=== PATIENT | male | born 1985 | race Two or more races ===

== ENCOUNTER 2020-09-25 01:28 | Inpatient (IN) | payer MEDICAID, OTHER ==
[~2020-09-25] VITALS: Ht 175.3 cm; Wt 127.1 kg
[2020-09-25 03:07] LABS: Basophils # (auto) 0.1 10 ^3/uL (0-0.2); Basophils % (auto) 0.9 % (0.0-2.0); Eosinophils # (auto) 1.1 10 ^3/uL (0-0.8); Eosinophils % (auto) 13.2 % (0.0-7.0); Hematocrit 48.3 % (41.0-53.0); Hemoglobin 16.9 g/dL (13.5-17.5); Lymphocytes # (auto) 1.4 10 ^3/uL (0.4-5.4); Lymphocytes % (auto) 17.1 % (10.0-50.0); Mean Corpuscular Hemoglobin 29.4 pg (28.0-32.0); Mean Corpuscular Hgb Conc. 34.9 g/dL (32.0-36.0); Mean Corpuscular Volume 84.2 fL (80.0-100.0); Monocytes # (auto) 0.6 10 ^3/uL (0-1.3); Monocytes % (auto) 7.1 % (0.0-12.0); Neutrophils # (auto) 5.1 10 ^3/uL (1.6-8.6); Neutrophils % (auto) 61.7 % (37.0-80.0); Nucleated Red Blood Cells % 0.1 %; Platelet Count (auto) 180 10^3/uL (140-450); Red Blood Cells 5.74 10^6/uL (4.5-5.90); Red Cell Distribution Width 13.8 % (11.8-14.3); White Blood Cell 8.3 10^3/uL (4.4-10.8)
[2020-09-25 03:26] LABS: Albumin 3.6 g/dL (3.4-5.0); Anion Gap 6 (5-15); Blood Urea Nitrogen 16 mg/dL (7-18); Calcium 8.6 mg/dL (8.5-10.1); Carbon Dioxide 27 mmol/L (21-32); Chloride 108 mmol/L (98-107); GFR African American 78 mL/min; GFR Non-African American 65 mL/min; Glucose 97 mg/dL (74-106); Sodium 141 mmol/L (136-145)
[2020-09-25 03:37] LABS: Alanine Aminotransferase 32 U/L (16-61); Alkaline Phosphatase 77 U/L (45-117); Aspartate Aminotransferase 21 U/L (15-37); Bilirubin, Total 0.5 mg/dL (0.2-1.0); Total Protein 7.4 g/dL (6.4-8.2)
[2020-09-25] MEDS ORDERED: MORPHINE SULFATE 4 MG/ML SYR/VIAL IV PRN (06:15)
[2020-09-25] MEDS ORDERED: ONDANSETRON HCL 4 MG/2 ML VIAL IV PRN (06:15)
[2020-09-25] MEDS ORDERED: ACETAMINOPHEN 325 MG TAB PO PRN (06:15)
[2020-09-25] MEDS ORDERED: DOCUSATE SOD 100 MG CAP PO PRN (06:15)
[2020-09-25] MEDS ORDERED: MORPHINE SULF INJ 2 MG/ML SYRINGE 1ML IV PRN (06:15)
[2020-09-25] MEDS ORDERED: HYDROcodone-ACET 5/325MG TAB PO PRN (06:15)
[2020-09-25] MEDS ORDERED: NITROGLYCERIN 0.4 MG SL TAB SL PRN (06:15)
[2020-09-25 08:04] LABS: Basophils # (auto) 0.1 10 ^3/uL (0-0.2); Basophils % (auto) 1.6 % (0.0-2.0); Eosinophils # (auto) 1.1 10 ^3/uL (0-0.8); Eosinophils % (auto) 14.6 % (0.0-7.0); Hematocrit 45.9 % (41.0-53.0); Hemoglobin 15.8 g/dL (13.5-17.5); Lymphocytes # (auto) 1.6 10 ^3/uL (0.4-5.4); Lymphocytes % (auto) 21.3 % (10.0-50.0); Mean Corpuscular Hemoglobin 29.1 pg (28.0-32.0); Mean Corpuscular Hgb Conc. 34.5 g/dL (32.0-36.0); Mean Corpuscular Volume 84.4 fL (80.0-100.0); Monocytes # (auto) 0.6 10 ^3/uL (0-1.3); Monocytes % (auto) 7.5 % (0.0-12.0); Neutrophils # (auto) 4.1 10 ^3/uL (1.6-8.6); Nucleated Red Blood Cells % 0.1 %; Platelet Count (auto) 166 10^3/uL (140-450); Red Blood Cells 5.43 10^6/uL (4.5-5.90); Red Cell Distribution Width 14.3 % (11.8-14.3); White Blood Cell 7.5 10^3/uL (4.4-10.8)
[2020-09-25 08:07] LABS: Albumin 3.5 g/dL (3.4-5.0); Calcium 8.5 mg/dL (8.5-10.1)
[2020-09-25 08:12] LABS: BUN/Creatinine Ratio 13.8; Bilirubin, Total 0.5 mg/dL (0.2-1.0); Total Protein 6.7 g/dL (6.4-8.2)
[2020-09-25] MEDS: ASPirin 81 mg TAB PO SCH (09:48)
[2020-09-25] MEDS: MULTIPLE VITAMIN TAB PO SCH (09:48)
[2020-09-25] MEDS ORDERED: PANTOPRAZOLE 40 MG/10 ML VIAL INJ IV SCH (10:00)
[2020-09-25] MEDS ORDERED: ZINC SULFATE 220mg CAP or TAB PO SCH (10:00)
[2020-09-25] MEDS ORDERED: ASCORBIC ACID 500 MG TAB PO SCH (10:00)
[2020-09-25 10:50] VITALS: BP 185/99
[2020-09-25 11:14] VITALS: BP 185/99
[2020-09-25] MEDS ORDERED: cloNIDine HCL 0.1 MG TAB PO PRN (11:15)
[2020-09-25] MEDS ORDERED: ALPRAZolam 0.5 MG TAB PO PRN (11:15)
[2020-09-25] MEDS ORDERED: LISINOPRIL 20 MG TAB PO ONE (11:15)
[2020-09-25 13:00] VITALS: BP 164/91
[2020-09-25] MEDS: CYCLOBENZAPRINE HCL 10 MG TAB PO SCH ×2 (13:44→22:00)
[2020-09-25 17:00] VITALS: BP 144/93
[2020-09-25 22:00] VITALS: BP 148/81
[2020-09-25] MEDS ORDERED: ATORVASTATIN 20 MG TAB PO SCH (22:00)
[2020-09-26 05:00] VITALS: BP 130/90
[2020-09-26] MEDS: CYCLOBENZAPRINE HCL 10 MG TAB PO SCH ×2 (06:00→13:30)
[2020-09-26 08:36] VITALS: BP 153/88
[2020-09-26] MEDS ORDERED: ADENOSINE 107 MG in GIVE UN-DILUTED 0 ML IV STA (08:37)
[2020-09-26 09:30] VITALS: BP 137/96
[2020-09-26] MEDS ORDERED: LISINOPRIL 20 MG TAB PO SCH (10:00)
[2020-09-26] MEDS ORDERED: amLODIPine BESYLATE 5 MG TAB PO SCH (10:00)
[2020-09-26] MEDS ORDERED: SERTRALINE HCL 50 MG TAB PO SCH (10:00)
[2020-09-26] MEDS: MULTIPLE VITAMIN TAB PO SCH (10:48)
[2020-09-26] MEDS: ASPirin 81 mg TAB PO SCH (10:50)
[2020-09-26] MEDS ORDERED: LISI-646 PO (12:03)
[2020-09-26] MEDS ORDERED: IBUP600T27 PO (12:03)
[2020-09-26] MEDS ORDERED: FAMO20TA10 PO (12:03)
[2020-09-26] MEDS ORDERED: CYCL-611 PO (12:03)
[2020-09-26] MEDS ORDERED: AML5T PO (12:03)
[2020-09-26] MEDS ORDERED: ATOR20TA50 PO (12:03)
[2020-09-26] MEDS ORDERED: SERT50TA PO (12:03)
[2020-09-26 13:05] VITALS: BP 144/90
[2020-09-26 14:39] VITALS: BP 144/90
== END 2020-09-26 16:10 | disposition home or self-care (01) | DRG 347 ==
LOC: ER 01:28 → EDBD 01:28 → TELE 01:29 → TELE-WESTW 11:05
PROVIDERS: ADMIT Nurse Practitioner Family; ATTEND Hospitalist
DX: M47.892 Other spondylosis, cervical region (principal); R07.89 Other chest pain; E66.01 Morbid (severe) obesity due to excess calories; I10 Essential (primary) hypertension; F32.9 Major depressive disorder, single episode, unspecified; G89.4 Chronic pain syndrome; M19.90 Unspecified osteoarthritis, unspecified site; M47.894 Other spondylosis, thoracic region; I25.2 Old myocardial infarction; Z79.899 Other long term (current) drug therapy; Z68.41 Body mass index [BMI] 40.0-44.9, adult
CPT/HCPCS: 36415; 71045; 72125; 72128; 78452; 80053; 80061; 83880; 84484; 85025; 93017; 93306; 96374; C9113; G0378; J0153

== ENCOUNTER 2020-10-29 19:59 | Inpatient (IN) | payer MEDICAID ==
[~2020-10-29] VITALS: Ht 180.3 cm; Wt 122.5 kg
[~2020-10-29 19:59] MED LIST: AML5T PO; ATOR20TA50 PO; CYCL-611 PO; FAMO20TA10 PO; IBUP600T27 PO; LISI-646 PO; SERT50TA PO
[2020-10-29] MEDS ORDERED: AZITHROMYCIN 500MG/ 250ML 250 ML IV ONE (21:30)
[2020-10-29 21:35] LABS: Hematocrit 46.4 % (41.0-53.0); Hemoglobin 15.8 g/dL (13.5-17.5); Mean Corpuscular Hemoglobin 28.4 pg (28.0-32.0); Mean Corpuscular Hgb Conc. 34.1 g/dL (32.0-36.0); Mean Corpuscular Volume 83.4 fL (80.0-100.0); Platelet Count (auto) 246 10^3/uL (140-450); Red Blood Cells 5.56 10^6/uL (4.5-5.90); Red Cell Distribution Width 14.2 % (11.8-14.3); White Blood Cell 11.4 10^3/uL (4.4-10.8)
[2020-10-29 21:38] LABS: Basophils % (manual) 0 (0.0-2.0); Blast Cells 0; Metamyelocytes % 0; Myelocytes % 0; Promyelocytes % 0; Reactive Lymphocytes 0
[2020-10-29 21:49] LABS: INR 1.1 (0.9-1.15)
[2020-10-29 21:50] LABS: Albumin 3.8 g/dL (3.4-5.0); Anion Gap 7 (5-15); Blood Urea Nitrogen 19 mg/dL (7-18); Calcium 8.8 mg/dL (8.5-10.1); Carbon Dioxide 27 mmol/L (21-32); Chloride 103 mmol/L (98-107); Glucose 113 mg/dL (74-106); Potassium 4.1 mmol/L (3.5-5.1); Sodium 137 mmol/L (136-145)
[2020-10-29 21:57] LABS: Alanine Aminotransferase 29 U/L (16-61); Alkaline Phosphatase 77 U/L (45-117); Aspartate Aminotransferase 19 U/L (15-37); BUN/Creatinine Ratio 15.4; GFR African American 86 mL/min; GFR Non-African American 71 mL/min; Total Protein 8.1 g/dL (6.4-8.2)
[2020-10-29] MEDS: ALBUTEROL SULF HFA 90MCG INH 200DOSE IN SCH (22:00)
[2020-10-29 22:07] LABS: Band Neutrophils % (manual) 4; Eosinophils % (manual) 19 (0-7); Lymphocytes % (manual) 9 (10.0-50.0); Monocytes % (manual) 5 (0-12)
[2020-10-29] MEDS ORDERED: methylPREDNISolone SOD SUCC 125 MG/2 ML VL IV ONE (22:45)
[2020-10-29] MEDS ORDERED: cloNIDine HCL 0.1 MG TAB PO ONE (23:30)
[2020-10-30] MEDS ORDERED: NITROGLYCERIN 0.4 MG SL TAB SL PRN (03:45)
[2020-10-30] MEDS ORDERED: ALBUTEROL SULF HFA 90MCG INH 200DOSE IN PRN (03:45)
[2020-10-30] MEDS ORDERED: MORPHINE SULF INJ 2 MG/ML SYRINGE 1ML IV PRN (03:45)
[2020-10-30] MEDS ORDERED: hydrALAZINE HCL 20 MG/ML VL IV PRN (03:45)
[2020-10-30] MEDS ORDERED: ACETAMINOPHEN 325 MG TAB PO PRN (03:45)
[2020-10-30] MEDS ORDERED: DOCUSATE SOD 100 MG CAP PO PRN (03:45)
[2020-10-30] MEDS ORDERED: HYDROcodone-ACET 5/325MG TAB PO PRN (03:45)
[2020-10-30] MEDS ORDERED: ONDANSETRON HCL 4 MG/2 ML VIAL IV PRN (03:45)
[2020-10-30] MEDS: ALBUTEROL SULF HFA 90MCG INH 200DOSE IN SCH (06:00)
[2020-10-30 06:55] LABS: Basophils # (auto) 0.1 10 ^3/uL (0-0.2); Basophils % (auto) 0.9 % (0.0-2.0); Eosinophils # (auto) 0.6 10 ^3/uL (0-0.8); Eosinophils % (auto) 5.9 % (0.0-7.0); Hematocrit 45.1 % (41.0-53.0); Hemoglobin 15.5 g/dL (13.5-17.5); Lymphocytes # (auto) 0.5 10 ^3/uL (0.4-5.4); Mean Corpuscular Hemoglobin 28.6 pg (28.0-32.0); Mean Corpuscular Hgb Conc. 34.5 g/dL (32.0-36.0); Mean Corpuscular Volume 83.1 fL (80.0-100.0); Monocytes # (auto) 0.2 10 ^3/uL (0-1.3); Monocytes % (auto) 2.1 % (0.0-12.0); Neutrophils # (auto) 9.3 10 ^3/uL (1.6-8.6); Neutrophils % (auto) 86.1 % (37.0-80.0); Nucleated Red Blood Cells % 0.2 %; Platelet Count (auto) 226 10^3/uL (140-450); Red Blood Cells 5.42 10^6/uL (4.5-5.90); Red Cell Distribution Width 14.2 % (11.8-14.3); White Blood Cell 10.8 10^3/uL (4.4-10.8)
[2020-10-30] MEDS: SODIUM CHLOR 0.9% PF (SALINE LOCK) 10ML VIAL/SYR IV SCH ×2 (07:00→13:58)
[2020-10-30 07:03] LABS: Albumin 3.7 g/dL (3.4-5.0); Calcium 8.6 mg/dL (8.5-10.1); Magnesium 2.3 mg/dL (1.6-2.6); Potassium 4.2 mmol/L (3.5-5.1)
[2020-10-30 07:06] LABS: BUN/Creatinine Ratio 15.5
[2020-10-30 07:09] LABS: Total Protein 8.1 g/dL (6.4-8.2)
--- NOTE | 2020-10-30 08:55 | NUR ---
PT IN NO DISTRESS. MDI NOT GIVEN. MDI PENDING COVID-19 RESULTS, PER PROTOCOL. PT IS AWAKE, ALERT AND ORIENTED. PT ON 3L/MIN NC, 94% O2 SATS. RR19 BPM. WILL CONTINUE TO MONITOR PT.
[2020-10-30] MEDS ORDERED: BUDESONIDE (INHALATION) 180 MCG IH IN SCH (10:00)
[2020-10-30] MEDS ORDERED: DOXYCYCLINE 100MG/250ML 250 ML IV SCH (10:00)
[2020-10-30] MEDS ORDERED: ASCORBIC ACID 500 MG TAB PO SCH (10:00)
[2020-10-30] MEDS ORDERED: ENOXAPARIN SOD 40 MG/0.4 ML SYRINGE SC SCH (10:00)
[2020-10-30] MEDS ORDERED: MULTIPLE VITAMIN TAB PO SCH (10:00)
[2020-10-30] MEDS ORDERED: FAMOTIDINE 20 MG TAB PO SCH (10:00)
[2020-10-30] MEDS ORDERED: ZINC SULFATE 220mg CAP or TAB PO SCH (10:00)
[2020-10-30] MEDS ORDERED: DexAMETHasone SOD PHOS 10MG/1ML VIAL INJ IV SCH (10:00)
[2020-10-30] MEDS ORDERED: CHOLECALCIFEROL (VITD3) 2,000 UNIT CAP PO SCH (10:00)
[2020-10-30] MEDS ORDERED: amLODIPine BESYLATE 5 MG TAB PO SCH (10:00)
[2020-10-30] MEDS ORDERED: SODIUM CHLORIDE 0.9% 1,000 ML IV ONE (10:15)
[2020-10-30] MEDS ORDERED: LISINOPRIL 20 MG TAB PO SCH (12:30)
[2020-10-30] MEDS ORDERED: IOHEXOL 350 MG/ML 100ML IJ ONE (13:15)
[2020-10-30] MEDS ORDERED: DOXY-338 PO (16:31)
[2020-10-30] MEDS ORDERED: IPRIH IN (16:31)
[2020-10-30] MEDS ORDERED: ALBUAER3 IN (16:31)
[2020-10-30 18:43] VITALS: BP 113/64
[2020-10-30] MEDS ORDERED: ATORVASTATIN 20 MG TAB PO SCH (22:00)
[2020-10-31] MEDS ORDERED: SERTRALINE HCL 50 MG TAB PO SCH (10:00)
--- NOTE | 2020-10-31 12:30 | NUR ---
Received a call from Yanni WALLS at [facility] [phone], stated they are accepting the patient. Called Rosalinda at [facility] and made her aware.
--- NOTE | 2020-10-31 12:31 | NUR ---
Faxed Home Health Evaluation to [facility] , , Fax to [facility] [phone], .
--- NOTE | 2020-10-31 14:55 | NUR ---
Received a call from [facility] [phone], stated that she had sent the auth # [id number] to [email or web address].
== END 2020-10-30 19:27 | disposition home health service (06) | DRG 133 ==
LOC: ER 19:59 → OVERFLOW 20:00
PROVIDERS: ADMIT Nurse Practitioner Family; ATTEND Nurse Practitioner Family
DX: J96.01 Acute respiratory failure with hypoxia (principal); J15.9 Unspecified bacterial pneumonia; J45.51 Severe persistent asthma with (acute) exacerbation; E78.5 Hyperlipidemia, unspecified; E66.01 Morbid (severe) obesity due to excess calories; F32.9 Major depressive disorder, single episode, unspecified; I10 Essential (primary) hypertension; K21.9 Gastro-esophageal reflux disease without esophagitis; N28.9 Disorder of kidney and ureter, unspecified; Z82.49 Family history of ischemic heart disease and other diseases of the circulatory system; D72.829 Elevated white blood cell count, unspecified; G89.29 Other chronic pain; M54.9 Dorsalgia, unspecified; J91.8 Pleural effusion in other conditions classified elsewhere; Z20.828 Contact with and (suspected) exposure to other viral communicable diseases
CPT/HCPCS: 36415; 36600; 71045; 71275; 80053; 82728; 82805; 83036; 83735; 84484; 85007; 85025; 85027; 85379; 85610; 85730; 86141; 87426; 87804; 93970; 96365; 96367; 96372; 96375; G0378; J1100; J3490

== ENCOUNTER 2021-01-18 18:10 | Emergency (ER) | payer MEDICAID ==
[~2021-01-18] VITALS: Ht 180.3 cm; Wt 112.5 kg
[~2021-01-18 18:10] MED LIST changes: +ALBUAER3 IN; +DOXY-338 PO; +IPRIH IN
[2021-01-18 18:52] LABS: Urine Bacteria FEW /hpf (None Seen); Urine Blood Negative /uL (Negative); Urine Mucus MODERATE (None Seen); Urine Specific Gravity 1.032 (1.001-1.035); Urine WBC 2 /hpf (0 - 3)
[2021-01-18 19:31] LABS: Hematocrit 48.2 % (41.0-53.0); Hemoglobin 16.9 g/dL (13.5-17.5); Mean Corpuscular Hemoglobin 28.5 pg (28.0-32.0); Mean Corpuscular Hgb Conc. 35.1 g/dL (32.0-36.0); Mean Corpuscular Volume 81.2 fL (80.0-100.0); Platelet Count (auto) 193 10^3/uL (140-450); Red Blood Cells 5.94 10^6/uL (4.5-5.90); Red Cell Distribution Width 15.3 % (11.8-14.3); White Blood Cell 9.4 10^3/uL (4.4-10.8)
[2021-01-18 19:39] LABS: Basophils % (manual) 0 (0.0-2.0); Blast Cells 0; Metamyelocytes % 0; Myelocytes % 0; Promyelocytes % 0; Reactive Lymphocytes 0
[2021-01-18 19:48] LABS: Potassium 3.3 mmol/L (3.5-5.1)
[2021-01-18 19:56] LABS: Albumin 4.1 g/dL (3.4-5.0); BUN/Creatinine Ratio 8.5; Bilirubin, Total 1.1 mg/dL (0.2-1.0); Calcium 8.7 mg/dL (8.5-10.1); Total Protein 8.1 g/dL (6.4-8.2)
[2021-01-18 20:01] LABS: Band Neutrophils % (manual) 1; Eosinophils % (manual) 17 (0-7); Lymphocytes % (manual) 10 (10.0-50.0); Monocytes % (manual) 5 (0-12)
[2021-01-18 22:03] VITALS: BP 137/88
[2021-01-18] MEDS ORDERED: ONDANSETRON HCL 4 MG/2 ML VIAL IV ONE (22:15)
[2021-01-18] MEDS ORDERED: SODIUM CHLORIDE 0.9% 1,000 ML IV ONE (22:15)
[2021-01-18] MEDS ORDERED: FAMOTIDINE (10MG/ML) 2ML VL IV ONE (22:45)
== END 2021-01-18 23:36 | disposition home or self-care (01) ==
LOC: ER 18:10
DX: K52.9 Noninfective gastroenteritis and colitis, unspecified (principal); R11.2 Nausea with vomiting, unspecified; E11.9 Type 2 diabetes mellitus without complications; E78.5 Hyperlipidemia, unspecified; Z79.899 Other long term (current) drug therapy; Z20.822 Contact with and (suspected) exposure to COVID-19
CPT/HCPCS: 36415; 71045; 80053; 81001; 85007; 85027; 87426; 96361; 96374; 96375; 99285; J2405; J3490; J7030

== ENCOUNTER 2022-05-18 03:58 | Emergency (ER) | payer MEDICAID ==
[~2022-05-18] VITALS: Ht 180.3 cm; Wt 124.3 kg
[~2022-05-18 03:58] MED LIST changes: -LISI-646 PO; +LISI20TA28 PO
[2022-05-18] MEDS ORDERED: ALBUTEROL SULF 2.5 MG/0.5ML(0.5%) NEB SOLN NEB ONE (06:45)
[2022-05-18] MEDS ORDERED: IPRATROPIUM BROM 0.5 MG/2.5ML INH SOL NEB ONE (06:45)
[2022-05-18 07:11] LABS: Calcium 8.5 mg/dL (8.5-10.1); Potassium 4.1 mmol/L (3.5-5.1)
[2022-05-18 07:13] LABS: BUN/Creatinine Ratio 18.2; Bilirubin, Total 0.7 mg/dL (0.2-1.0); Total Protein 7.6 g/dL (6.4-8.2)
[2022-05-18 07:39] LABS: Basophils # (auto) 0 10 ^3/uL (0-0.2); Basophils % (auto) 0.2 % (0.0-2.0); Eosinophils # (auto) 0.2 10 ^3/uL (0-0.8); Eosinophils % (auto) 1.5 % (0.0-7.0); Hematocrit 49.4 % (41.0-53.0); Hemoglobin 17.1 g/dL (13.5-17.5); Lymphocytes # (auto) 1.6 10 ^3/uL (0.4-5.4); Lymphocytes % (auto) 14.4 % (10.0-50.0); Mean Corpuscular Hemoglobin 30.1 pg (28.0-32.0); Mean Corpuscular Hgb Conc. 34.6 g/dL (32.0-36.0); Monocytes # (auto) 0.7 10 ^3/uL (0-1.3); Monocytes % (auto) 6.1 % (0.0-12.0); Neutrophils # (auto) 8.6 10 ^3/uL (1.6-8.6); Neutrophils % (auto) 77.8 % (37.0-80.0); Nucleated Red Blood Cells % 0.2 %; Red Blood Cells 5.68 10^6/uL (4.5-5.90); Red Cell Distribution Width 14.1 % (11.8-14.3); White Blood Cell 11.1 10^3/uL (4.4-10.8)
[2022-05-18 08:00] LABS: INR 1.08 (0.9-1.15); Partial Thromboplastin Time 31.7 sec (23.6-33.0)
[2022-05-18 09:00] VITALS: BP 177/92
== END 2022-05-18 09:02 | disposition home or self-care (01) ==
LOC: ER 03:58
DX: K64.9 Unspecified hemorrhoids (principal); N17.9 Acute kidney failure, unspecified; E86.0 Dehydration; I10 Essential (primary) hypertension; E78.5 Hyperlipidemia, unspecified; Z79.1 Long term (current) use of non-steroidal anti-inflammatories (NSAID); Z79.2 Long term (current) use of antibiotics; Z79.899 Other long term (current) drug therapy
CPT/HCPCS: 36415; 74176; 80053; 83690; 85025; 85610; 85730; 94640; 99284; J7644

== ENCOUNTER 2022-08-18 18:45 | Emergency (ER) | payer MEDICAID ==
[~2022-08-18] VITALS: Ht 175.3 cm; Wt 127.0 kg
[2022-08-18] MEDS ORDERED: HYDROcodone-ACET 10/325MG TAB PO ONE (21:00)
[2022-08-18] MEDS ORDERED: KETOROLAC TROMETH 60MG/2ML VIAL IM ONE (21:00)
[2022-08-18] MEDS ORDERED: HYDR-4798 PO (21:41)
[2022-08-18 22:05] VITALS: BP 130/89
== END 2022-08-18 22:49 | disposition home or self-care (01) ==
LOC: EDBD 18:45 → ER 18:46
DX: S50.12XA Contusion of left forearm, initial encounter (principal); S90.811A Abrasion, right foot, initial encounter; S10.91XA Abrasion of unspecified part of neck, initial encounter; S30.811A Abrasion of abdominal wall, initial encounter; I10 Essential (primary) hypertension; E78.5 Hyperlipidemia, unspecified; Z79.1 Long term (current) use of non-steroidal anti-inflammatories (NSAID); Z79.899 Other long term (current) drug therapy; V43.52XA Car driver injured in collision with other type car in traffic accident, initial encounter; Y93.89 Activity, other specified; Y92.410 Unspecified street and highway as the place of occurrence of the external cause; Y99.8 Other external cause status
CPT/HCPCS: 96372; 99283; J1885